=== PATIENT | female | born 1995 | race Caucasian/White ===

== ENCOUNTER 2016-10-06 23:31 | Inpatient (IN) | payer BC ==
[~2016-10-06] VITALS: Ht 167.6 cm; Wt 62.0 kg
[~2016-10-06 23:31] MED LIST: CEPHALEXIN500 MG PO; CITRATE OF MAG296 ML PO; IBUPROFEN800 MG PO; MILK OF MAGN PO; MULTIVITAMIN1 EAC2 PO; Motrin PO; NITROFURANTOIN100 M3 PO; PERCOCET 5/31 TABLET PO; PREDNISONE20 MG PO; Percocet 5/325,Endoc PO; ZITHROMAX Z-PA250 MG PO; ZOFRAN ODT4 MG PO
[2016-10-07] VITALS (7 sets, daily range): BP systolic 91–116; BP diastolic 51–78
[2016-10-07 00:04] LABS: MCH 27.5 PG (29.0-34.0); MCHC 32.3 G/DL (30.0-36.0); MCV 85.2 FL (83-99); MEAN PLAT.VOLUME 8.7 uM^3 (9.5-12.4); PLATELET COUNT 540 K/uL (156-360); RBC DIS.WIDTH-CV 14.3 % (11.8-14.6); RBC DIS.WIDTH-SD 43.4 % (39-53); RED BLOOD COUNT 4.11 M/uL (3.80-5.20)
[2016-10-07 00:12] LABS: CHLORIDE 103 mEq/L (99-109); POTASSIUM 3.9 mEq/L (3.7-5.4); SODIUM 136 mEq/L (136-147)
[2016-10-07 00:14] LABS: GLUCOSE 150 mg/dL (70-99)
[2016-10-07 00:15] LABS: ANION GAP 11 MEQ/L (2-14)
[2016-10-07 00:16] LABS: TOTAL BILIRUBIN 0.4 mg/dL (0.0-1.0)
[2016-10-07 00:17] LABS: ALKALINE PHOSPHATASE 204 IU/L (3-129)
[2016-10-07 00:18] LABS: GFR ESTIMATE (CALCULATED) > 59 mL/min/
[2016-10-07 00:19] LABS: UREA NITROGEN (BUN) 6 mg/dL (9-23)
[2016-10-07 00:21] LABS: LIPASE 13 U/L (1.0-51.0)
[2016-10-07 00:27] LABS: QUANTITATIVE HCG < 4.0 MIU/ML
[2016-10-07 02:19] LABS: ADD MIUA? YES; BILIRUBIN NEGATIVE; BLOOD NEGATIVE; COLOR YELLOW ((YELLOW)); GLUCOSE (STRIP) NEGATIVE; KETONES NEGATIVE; LEUKOCYTES LARGE; NITRITE NEGATIVE; PROTEIN (STRIP) NEGATIVE; SPECIFIC GRAVITY 1.016 (1.000-1.030)
[2016-10-07 02:27] LABS: BACTERIA RARE /HPF; EPITHELIAL CELLS 2+ /HPF; MUCUS TRACE /LPF; UCUL ADDED? NO; WHITE BLOOD CELLS 20-30 /HPF (0-5)
[2016-10-08 03:22] VITALS: BP 101/55
[2016-10-08 07:50] VITALS: BP 106/59
[2016-10-08 12:20] VITALS: BP 103/54
[2016-10-08 13:16] LABS: CHLAMYDIA TRACHOMATIS POSITIVE; NEISSERIA GONORRHOEAE POSITIVE
[2016-10-08 16:10] VITALS: BP 107/59
[2016-10-08 23:27] VITALS: BP 100/72
[2016-10-09 06:40] VITALS: BP 106/61
[2016-10-09] MEDS ORDERED: DOXYCYCLINE HY100 M3 PO (10:22)
[2016-10-09] MEDS ORDERED: IBUPROFEN800 MG PO (10:22)
[2016-10-09 11:05] VITALS: BP 99/58
[2016-10-09 11:38] LABS: EOSINOPHIL (%) 4.3 % (0-5); EOSINOPHIL COUNT 0.4 K/uL (0-0.3); HEMATOCRIT 35.1 % (36.0-46.0); IMMATURE GRANULOCYTE (%) 0.4 % (0.0-0.7); LYMPHOCYTE COUNT 2.8 K/uL (1.0-2.8); MCH 27.5 PG (29.0-34.0); MCHC 32.2 G/DL (30.0-36.0); MCV 85.4 FL (83-99); MEAN PLAT.VOLUME 8.8 uM^3 (9.5-12.4); MONOCYTE (%) 10.9 % (3-12); NEUTROPHIL (%) 53.2 % (45-76); NEUTROPHIL COUNT 4.8 K/uL (1.8-6.4); PLATELET COUNT 480 K/uL (156-360); RBC DIS.WIDTH-CV 14.5 % (11.8-14.6); RBC DIS.WIDTH-SD 45.3 % (39-53); RED BLOOD COUNT 4.11 M/uL (3.80-5.20)
[2016-10-09 12:59] LABS: AHBS INDEX 5.64; HBSG INDEX 0.18; HEPATITIS B SURFACE ANTIBODY Nonreactive
[2016-10-09 14:15] LABS: TREPONEMA ANTIBODY NEGATIVE (NEGATIVE)
[2016-10-13 07:18] LABS: HIV RNA QUANT LOG10 RESULT < 1.30 Log(10) (<1.30); HIV RNA QUANT VIRAL LOAD < 20 copy/mL (<20)
[2016-10-13 07:26] LABS: HCV RNA (LOG IU/mL) 1.85 (<1.18)
== END 2016-10-09 12:20 | disposition home or self-care (01) | DRG 758 ==
LOC: EME 23:31 → EDOF 10-07 03:40 → 2EAST 10-07 03:40
PROVIDERS: Obstetrics & Gynecology; Physician Assistant
DX: A54.24 Gonococcal female pelvic inflammatory disease (principal); A56.11 Chlamydial female pelvic inflammatory disease; F11.23 Opioid dependence with withdrawal
CPT/HCPCS: 74177; 76856; 80053; 81003; 83690; 84702; 85025; 85027; 86703; 86706; 86780; 86803; 87040; 87210; 87340; 87491; 87522 90; 87536; 87591; 93005; 99281; 99285; J1885; J7030; J7120; Q0177

== ENCOUNTER 2018-01-19 01:36 | Emergency (ER) | payer BC, OTHER ==
[~2018-01-19] VITALS: Ht 167.6 cm; Wt 83.2 kg
[~2018-01-19 01:36] MED LIST changes: +DOXYCYCLINE HY100 M3 PO
[2018-01-19] MEDS ORDERED: MEDROL DOSEPAK4 MG PO (02:45)
[2018-01-19] MEDS ORDERED: AMOXICILLIN500 MG PO (02:45)
[2018-01-19 03:17] VITALS: BP 111/90
== END 2018-01-19 03:18 | disposition home or self-care (01) ==
LOC: EME 01:36
DX: J02.0 Streptococcal pharyngitis (principal)
CPT/HCPCS: 87651 90; 99281; 99283; J7512